=== PATIENT | male | born 2000 | race Caucasian/White ===

== ENCOUNTER 2020-01-12 14:58 | Emergency (ER) | payer OTHER, SELFPAY ==
[2020-01-12 15:13] VITALS: BP 119/76; PULSE 83; RESP 14; TEMP 37.4; O2SAT 99
--- NOTE | 2020-01-12 15:44 | ED.GENADUL_ITS ---
Discharge Plan Disposition Patient Disposition: HOME Condition: Stable Discharge Details Chief Complaint: Chest/Rib Clinical Impression: Acute costochondritis Primary Care Provider: None,None ED Provider: Amado Peña Home Meds and New Rx's Prescriptions: No Action No Known Home Meds RF: 0 Discharge Instructions Instructions: Costochondritis (ED) Additional Instructions: [id number]-weq-[id number] Naprosyn as directed. Gentle stretching as tolerated. Cool and/or warm compresses every 2 hours for 20 minutes. Please watch for new or worsening symptoms and return to the ER for any concerns. I would like you to contact her primary care provider later today or Wednesday for prompt outpatient reevaluation Discharge Data Discharge Date/Time-TO BE ENTERED AT DEPARTURE: 01/12/20 15:55 Medical Decision Making 19-year-old gentleman, otherwise healthy, presents with persistent 4-month history of left-sided chest discomfort. As my HPI states, no other symptoms. This does not radiate. He is afebrile, O2 sats are 99% on room air and his pulse is in the 80s. He has not tried any ewmd-ymg-tmrbors remedies for his symptoms. In his problem list there is history of substance abuse, patient reports that he does not use any substances now and when he did a couple of years ago it was psychedelics, never IV drug use. Upon evaluation, he has a left-sided point tenderness highly consistent with costochondritis. His discomfort can be made worse with bending, twisting, movement of his left arm. Given his age, presentation, lack of risk factors, I feel is the diagnosis such as ACS, PE, pneumonia, endocarditis, myocarditis, etc. are extremely unlikely. We discussed this and my thought process in length. He feels reassured and we discussed first-line treatment. We discussed gentle stretching, cool and/or warm compresses, dshn-bbj-vbmklpr anti-inflammatory medication consistently as directed, as well as smgf-vsl-iydjual Tylenol for additional breakthrough discomfort. He was encouraged to watch for new or worsening symptoms and return to the ER for new or worsening symptoms. He was also instructed that he has never been diagnosed by 2 separate providers with what is most likely costochondritis. After he adequately treats this with first-line therapy, if he does not have any improvement, then further work-up may be indicated however emergently likely not indicated today in the ER. He will reach out to his primary care provider later today or on Wednesday for prompt outpatient reevalua tion regarding his symptoms and treatment of his symptoms. Medical Records Medical records reviewed: Yes I reviewed the patient's medical records. HPI General Mode of arrival: ambulatory . Date/Time Provider Initiated Documentation: 01/12/20 15:17 . Limitations to Documentation: no limitations . Information obtained by: patient . HPI Narrative: This is a 19-year-old gentleman with a history of anxiety, former smoker, presenting to the ER requesting a second opinion regarding left-sided chest pain. He reports that is been present daily for approximately 4 months, worse with movement, bending, deep breathing, any movement of the left shoulder, and engaging his core. He is right-hand dominant. He denies any obvious trauma. He denies any fever, radiation of the pain to his neck, jaw, back, down his arms. He denies any shortness of breath, cough. Denies any numbness, tingling, weakness in his extremities. Denies any abdominal pain, nausea or vomiting. He has no known early cardiac disease within his family. He was seen by his equipment operator [employer] already for this, diagnosed with costochondritis, but because it has not gone away would like to be reevaluated. He has not taken any xgoj-jfg-rjemfym medications over the past 4 months, has not done any cool and/or warm compresses, and has not tried any physical therapy or gentle stretching. Of note he did describe the sensation as a squeezing to both arms and his triage however this is not how he describes his symptoms to me whatsoever. Related Data Home Medications Medication Instructions Recorded Confirmed Unknown [No Known Home Meds] 12/21/19 01/12/20 Allergies Allergy/AdvReac Type Severity Reaction Status Date / Time pollen extracts Allergy Mild Verified 01/12/20 15:21 General Stated Complaint: Chest/Rib ADAM: 4 Review of Systems Constitutional Constitutional: Denies fever(s) and Denies weakness ENT Ears, Nose, Mouth, and Throat: Denies neck pain and Denies sore throat Cardiovascular Cardiovascular: Reports chest pain, Denies rapid heart rate, Denies palpitations and Denies dyspnea Respiratory Respiratory: Denies chest congestion, Denies dyspnea and Denies wheezing Gastrointestinal Gastrointestinal: Denies abdominal pain, Denies nausea and Denies vomiting Musculoskeletal Musculoskeletal: Denies back pain, Denies neck pain, Denies numbness and Denies tingling Integumentary/Breasts Skin/Breast: Denies erythema and Denies rash Neurologic Neurologic: Denies numbness, Denies tingling and Denies weakness Psychiatric Psychiatric: Reports anxiety Endocrine Endocrine: Denies palpitations Allergic/Immunologic Allergic/Immunologic: Denies wheezing [facility] Medical History Acute costochondritis (Acute) Anxiety mild- improved with counseling 04/12 Attention deficit hyperactivity disorder, combined type resolved Healthy adult on routine physical examination (Acute) Substance abuse, daily use (Acute) Surgical History Tooth extraction Family History Mother Bipolar affective Depression Social History Smoking/Tobacco Use Status: Former Tobacco Use Second Hand Exposure: No Household members: family Pets and animals: Yes (Hamster) Pets and animals: hamster(s) Additional Social history: Currently working at [employer] Exam Const General: cooperative, healthy appearing, comfortable and no acute distress Orientation: alert, awake and oriented x3 HENMT Head: normal to inspection, normocephalic and atraumatic Face and sinus: normal facial exam Mouth: moist mucous membranes Throat: posterior oropharynx normal Eyes Conjunctivae: conjunctivae normal Sclera: sclerae normal Neck Neck: normal visual inspection, full ROM, no meningeal signs, trachea midline, supple and nontender Chest Chest: normal inspection of the chest, no crepitus and tenderness costochondral junction (Left-sided, point tenderness) Resp Effort & Inspection: normal respiratory effort and able to speak in complete sentences Auscultation: clear to auscultation bilaterally Cardio Rate: regular rate Rhythm: regular rhythm GI Palpation: soft, no pulsatile masses and nontender Back/Spine/Pelvis Back: No back tenderness Skin General skin exam: no rashes or lesions noted Neuro General: patient alert, patient awake, patient oriented x3, moves all extremities and no focal motor deficits Cognition: normal cognition Speech: speech normal Gait: normal gait Motor: muscle tone normal throughout and strength 5/5 throughout Sensory Exam: no sensory deficits noted Extrem General: normal to inspection, full ROM and no pedal edema Right upper extremity: full ROM and normal capillary refill Left upper extremity: normal to inspection, full ROM and normal capillary refill Psych Appearance: grossly normal Mental Status: mental status grossly normal Course Vital Signs Vital signs: Vital Signs Temperature 37.4 C 01/12/20 15:13 Pulse 83 01/12/20 15:13 Respiratory Rate 14 01/12/20 15:13 Blood Pressure 119/76 01/12/20 15:13 Pulse Oximetry 99 01/12/20 15:13 Temperature 37.4 C 01/12/20 15:13 Temperature Source Skin 01/12/20 15:13 Pulse 83 01/12/20 15:13 Respiratory Rate 14 01/12/20 15:13 Respiratory Effort 01/12/20 15:21 Blood Pressure 119/76 01/12/20 15:13 Blood Pressure Position Sitting 01/12/20 15:13 Pulse Oximetry 99 01/12/20 15:13 Oxygen Delivery Method Room Air 01/12/20 15:13 Oxygen Flow Rate 0 01/12/20 15:13 Pain Level 3 01/12/20 15:13 Comment 01/12/20 15:13
[2020-01-12 15:52] VITALS: BP 119/76; PULSE 83; RESP 14; TEMP 37.4; O2SAT 99
--- NOTE | 2020-01-13 11:24 | NUR.NOTE ---
Referral to Care Management to establish pcp.Nursing Note:
== END 2020-01-12 15:55 | disposition home or self-care (01) ==
PROVIDERS: Emergency Provider Physician Assistant
DX: M94.0 Chondrocostal junction syndrome [Tietze] (principal)
CPT/HCPCS: 99282

== ENCOUNTER 2020-01-15 13:47 | Outpatient (CLI) | payer OTHER, SELFPAY ==
[2020-01-20 12:33] LABS: SARS-CoV-2 RNA Undetected (Undetected); SARS-CoV-2 Specimen Source Nasopharynx
== END 2020-01-15 14:07 ==
PROVIDERS: Visit Provider Family Medicine
DX: Z11.59 Encounter for screening for other viral diseases (principal)
CPT/HCPCS: U0003